=== PATIENT | female | born 1945 | race Caucasian/White ===

== ENCOUNTER → 2024-08-13 | Outpatient (CLI) | payer MEDICARE, SELFPAY ==
[2024-08-13 11:53] LABS: Misc Send Out* See Sep Rpt; Quantiferon-TB* See Sep Rpt
[2024-08-13 12:34] LABS: Basophils % (Auto) 1 % (0-2.5); Eosinophils # (Auto) 0.2 Thou/mm3 (0.0-0.5); Eosinophils % (Auto) 2 % (0-10); Hemoglobin 11.1 g/dL (12.0-16.0); Immature Granulocytes % (Auto) 0 % (0-0); Immature Granulocytes Auto 0.03 Thou/mm3 (0.00-0.00); Lymphocytes # (Auto) 1.5 Thou/mm3 (1.0-4.8); Lymphocytes % (Auto) 18 % (10-50); Mean Corpuscular HGB Conc 32.6 g/dl (31.0-37.0); Mean Corpuscular Hemoglobin 31.6 pg (25.0-35.0); Mean Corpuscular Volume 97 fL (80-100); Monocytes # (Auto) 0.5 Thou/mm3 (0.0-0.8); Monocytes % (Auto) 5 % (0-12); Neutrophils # (Auto) 6.3 Thou/mm3 (1.8-7.7); Neutrophils % (Auto) 74 % (37-80); Nucleated Red Blood Cell % 0 /100 WBC (0); Platelet Count 231 Thou/mm3 (140-440); RDW Standard Deviation 47.4 fL (36.4-46.3); Red Blood Count 3.51 Miln/mm3 (4.00-5.20); White Blood Count 8.5 Thou/mm3 (3.6-11.0)
[2024-08-13 12:56] LABS: Alanine Aminotransferase 18 U/L (10-49); Albumin/Globulin Ratio 2.1 (1.2-2.2); Alkaline Phosphatase 67 U/L (46-116); Anion Gap 7 (7-16); Aspartate Amino Transferase 24 U/L (0-34); BUN/Creatinine Ratio 27 Ratio (12-20); Bilirubin,Direct 0.2 mg/dL (0.0-0.3); Bilirubin,Total 0.7 mg/dL (0.3-1.2); Blood Urea Nitrogen 24 mg/dL (9-23); Calcium 9.3 mg/dL (8.3-10.6); Calcium (Corrected) 9.3 mg/dL (8.5-10.1); Carbon Dioxide 27.9 mMol/L (20.0-31.0); Cardiac Risk Estimate 2.1 RATIO (3.7-5.6); Chloride 107 mMol/L (98-107); Cholesterol 203 mg/dL (132-200); Creatinine (Component) 0.9 mg/dL (0.6-1.3); Folate 15.04 ng/mL (>5.38); Free T4 (Free Thyroxine) 1.25 ng/dL (0.89-1.76); Globulin 1.9 gm/dL (2.3-3.5); Glucose 92 mg/dL (74-106); HDL Cholesterol 98 mg/dL (40-60); LDL Cholesterol,Calculated 89 mg/dL (0-130); Osmolality,Calculated 287 (275-295); Potassium 3.8 mMol/L (3.4-5.1); Sodium 142 mMol/L (136-145); Thyroid Stimulating Hormone 1.27 uIU/mL (0.55-4.78); Total Protein 5.9 gm/dL (5.7-8.2); Triglycerides 82 mg/dL (30-150); Vitamin B12 > 2000 pg/mL (211-911); eGFR > 60 See Note
[2024-08-13 12:57] LABS: C-Reactive Protein < 0.4 mg/dL (0.0-0.9)
[2024-08-13 13:05] LABS: Ferritin 12 ng/mL (7.3-270.7); Iron 84 mcg/dL (50-170); Percent Iron Saturation 23 % (20-55); Total Iron Binding Capacity 363 mcg/dL (250-425); Unsaturated Iron Binding 279 (225-295)
[2024-08-13 13:11] LABS: Sed Rate (ESR) 6 mm/hr (0-30)
[2024-08-13 14:59] LABS: RA Screen Negative (Negative)
[2024-08-26 15:35] LABS: Cardiolipin Ab (IgA) <2.0 APL-U/mL; Cardiolipin Ab (IgG) <2.0 GPL-U/mL; Sjogren's antibody (SS-A) <1.0 NEG AI (<1.0 NEGATIVE); Sm Antibody <1.0 NEG AI (<1.0 NEGATIVE)
[2024-08-27 06:48] LABS: ANA Screen, IFA NEGATIVE (NEGATIVE); Actin Antibody (IgG)* <20 U; Cardiolipin Ab (IgM) <2.0 MPL-U/mL; Complement Component C3* 138 mg/dL (83-193); Complement Component C4c* 24 mg/dL (15-57); Cortisol,total,LC/MS/MS* 11.2 mcg/dL; DNA (ds) Antibody* <1 IU/mL; Estradiol, Ultrasensitive* <2 pg/mL; Progesterone,LC/MS* <0.1 ng/mL; Scl-70 Antibody* <1.0 NEG AI (<1.0 NEGATIVE); Sjogren's Antibody (SS-B) <1.0 NEG AI (<1.0 NEGATIVE); Sm/RNP Antibody <1.0 NEG AI (<1.0 NEGATIVE); Thyroid Peroxidase Antibodies* 2 IU/mL (<9)
== END | disposition home or self-care (01) ==
LOC: COPL 08-14 07:41
PROVIDERS: PCP Internal Medicine; Referring Provider Nurse Practitioner Family; Visit Provider Nurse Practitioner Family
DX: Z00.00 Encounter for general adult medical examination without abnormal findings (principal); Z13.820 Encounter for screening for osteoporosis; Z12.31 Encounter for screening mammogram for malignant neoplasm of breast; M79.7 Fibromyalgia; J34.89 Other specified disorders of nose and nasal sinuses; G47.00 Insomnia, unspecified; F33.1 Major depressive disorder, recurrent, moderate; M25.50 Pain in unspecified joint; F03.A4 Unspecified dementia, mild, with anxiety; F03.A3 Unspecified dementia, mild, with mood disturbance; L65.8 Other specified nonscarring hair loss; F03.A18 Unspecified dementia, mild, with other behavioral disturbance; K59.04 Chronic idiopathic constipation; J30.9 Allergic rhinitis, unspecified; N95.1 Menopausal and female climacteric states; M06.00 Rheumatoid arthritis without rheumatoid factor, unspecified site; H04.123 Dry eye syndrome of bilateral lacrimal glands; F41.1 Generalized anxiety disorder; J01.10 Acute frontal sinusitis, unspecified; I10 Essential (primary) hypertension; G62.9 Polyneuropathy, unspecified; L30.9 Dermatitis, unspecified; H66.91 Otitis media, unspecified, right ear; K21.9 Gastro-esophageal reflux disease without esophagitis; R00.2 Palpitations; U07.1 COVID-19; B35.1 Tinea unguium; J45.20 Mild intermittent asthma, uncomplicated; H61.23 Impacted cerumen, bilateral; Z86.16 Personal history of COVID-19
CPT/HCPCS: 36415; 80053; 80061; 82248; 82306; 82533; 82607; 82670; 82728; 82746; 83036; 83540; 83550; 84144; 84439; 84443; 84550; 85025; 85652; 86015; 86038; 86140; 86147; 86160; 86225; 86235; 86376; 86430; 86480; 86812

== ENCOUNTER → 2024-08-13 | Outpatient (CLI) | payer MEDICARE, SELFPAY | END | disposition home or self-care (01) | LOC: COPL 10:58 | PROVIDERS: PCP Internal Medicine; Referring Provider Nurse Practitioner Family; Visit Provider Nurse Practitioner Family | DX: Z00.00 Encounter for general adult medical examination without abnormal findings (principal); M79.7 Fibromyalgia; M25.50 Pain in unspecified joint; K21.9 Gastro-esophageal reflux disease without esophagitis; Z68.24 Body mass index [BMI] 24.0-24.9, adult; F03.A4 Unspecified dementia, mild, with anxiety; Z12.31 Encounter for screening mammogram for malignant neoplasm of breast; H04.123 Dry eye syndrome of bilateral lacrimal glands; J34.89 Other specified disorders of nose and nasal sinuses; G47.00 Insomnia, unspecified; F33.1 Major depressive disorder, recurrent, moderate; Z13.820 Encounter for screening for osteoporosis; Z68.23 Body mass index [BMI] 23.0-23.9, adult; Z86.16 Personal history of COVID-19; L65.8 Other specified nonscarring hair loss; R00.2 Palpitations; K59.04 Chronic idiopathic constipation; J30.9 Allergic rhinitis, unspecified; N95.1 Menopausal and female climacteric states; F41.1 Generalized anxiety disorder; J01.10 Acute frontal sinusitis, unspecified; U07.1 COVID-19; I10 Essential (primary) hypertension; G62.9 Polyneuropathy, unspecified; H66.91 Otitis media, unspecified, right ear; B35.1 Tinea unguium; J45.20 Mild intermittent asthma, uncomplicated; H61.23 Impacted cerumen, bilateral ==